=== PATIENT | male | born 1990 | race Caucasian/White ===

== ENCOUNTER 2017-04-09 18:18 | Inpatient (IN) | payer OTHER ==
[~2017-04-09] VITALS: Ht 167.6 cm; Wt 100.7 kg
[2017-04-09 19:01] LABS: BILIRUBIN,URINE NEGATIVE (NEGATIVE); KETONES,URINE NEGATIVE (NEGATIVE); LEUKOCYTE ESTERASE ,URINE NEGATIVE (NEGATIVE); NITRITE,URINE NEGATIVE (NEGATIVE); PROTEIN,URINE DIPSTICK NEGATIVE (NEGATIVE); URINE UROBILINOGEN 0.2 mg/dL (0.2 - 1)
[2017-04-09 19:08] LABS: AMPHETAMINES SCREEN,URINE NEGATIVE (NEGATIVE); BENZODIAZEPINES SCREEN,URINE NEGATIVE (NEGATIVE); CANNABINOIDS SCREEN,URINE NEGATIVE (NEGATIVE); PHENCYCLIDINE SCREEN,URINE NEGATIVE (NEGATIVE)
[2017-04-09 19:09] LABS: CLARITY,URINE CLEAR (CLEAR); COLOR,URINE STRAW (YELLOW)
[2017-04-09 19:30] LABS: EPITHELIAL CELLS,URINE RARE /LPF; WBC,URINE (MAN) 0-5 /HPF (0-5)
[2017-04-09] MEDS ORDERED: SODIUM CHLORIDE 0.9% 1000ML 1,000 ML IV STA (21:30)
--- NOTE | 2017-04-09 21:56 | Diagnostic Imaging Report ---
EXAM: CHEST SINGLE (PORTABLE), AP 1 view DATE: 04/09/2017 9:30 PM Time stamp on exam: 2146 hours INDICATION: Headache, possible seizure COMPARISON: None FINDINGS: LINES/TUBES: None LUNGS: Bibasilar atelectasis. PLEURA: No effusions or pneumothorax. HEART AND MEDIASTINUM: Normal size and contour. BONES AND SOFT TISSUES: No acute findings. IMPRESSION: Bibasilar atelectasis. Signed by: Dr. Carol De Oliveira M.D. on 04/09/2017 9:53 PM
--- NOTE | 2017-04-09 22:02 | Diagnostic Imaging Report ---
Exam: Head CT without contrast History: Seizure, numbness. Comparison studies: None Technique: Axial images were obtained from the skull base to the vertex. Coronal and sagittal images reconstructed from the axial data. Intravenous contrast: None Findings: Scalp: Incidental scattered dystrophic calcifications in the scalp. Bones: No fractures, blastic or lytic lesions. Brain sulci: Appropriate for age. Ventricles: Normal in size and configuration. No hydrocephalus. Extra-axial spaces: No masses, no fluid collection. Parenchyma: No abnormal densities. No masses, acute hemorrhage, acute or chronic vascular insults. Sellar/suprasellar region: No abnormalities. Craniocervical junction: Patent foramen magnum. No Chiari one malformation. Incidental findings: Nonspecific inflammatory mucosal thickening in the maxillary sinuses with fluid levels in the maxillary sinuses and right sphenoid sinus which could be correlated for sinusitis. Mild inflammatory mucosal thickening in the right anterior ethmoids. IMPRESSION: 1. No intracranial abnormalities. 2. Inflammatory changes in the paranasal sinuses as described which could be correlated for acute sinusitis. Signed by: Dr. Holden Johnson M.D. on 04/09/2017 9:58 PM
[2017-04-09] MEDS ORDERED: VANCOMYCIN 1GM/NS 250 ML 250 ML IV STA (22:41)
[2017-04-09] MEDS: CEFTRIAXONE SOD 1 GM VIAL IV SCH (23:40)
[2017-04-10 00:05] LABS: BASOPHILS % 0.2 % (0.0-1.0); EOSINOPHILS # (AUTO) 0.2 (0.0-0.4); EOSINOPHILS % 1.7 % (0.0-6.0); HEMATOCRIT 52.1 % (38.2-49.6); HEMOGLOBIN 17.7 g/dL (14.0-18.0); INR 0.9; LYMPHOCYTES # (AUTO) 2.4 (1.0-3.2); LYMPHOCYTES % 20.7 % (18.0-39.1); MEAN CORPUSCULAR HEMOGLOBIN 27.1 pg (28-32); MEAN CORPUSCULAR VOLUME 79.8 fL (81-99); MONOCYTES # (AUTO) 0.6 (0.2-0.8); MONOCYTES % 5.2 % (4.4-11.3); NEUTROPHILS # (AUTO) 8.4 (2.1-6.9); NEUTROPHILS % 71.8 % (38.7-80.0); PLATELET COUNT 194 x10e3/uL (140-360); PROTHROMBIN TIME 12.6 seconds (11.9-14.5); RED BLOOD COUNT 6.53 x10e6/uL (4.3-5.7); RED CELL DISTRIBUTION WIDTH 12.5 % (11.7-14.4)
[2017-04-10 00:06] LABS: PARTIAL THROMBOPLASTIN TIME 34.1 seconds (23.8-35.5)
[2017-04-10] MEDS ORDERED: OSELTAMIVIR PHOSPHATE 75 MG CAP PO STA (00:26)
[2017-04-10] MEDS ORDERED: LEVETIRACETAM 500MG/5ML VIAL 1,000 MG in SODIUM CHLORIDE 0.9% 100 ML 100 ML IV ONE (00:45)
[2017-04-10] MEDS ORDERED: LORAZEPAM INJ 2 MG/ML VIAL ONE (01:09)
[2017-04-10] MEDS ORDERED: ACYCLOVIR SODIUM INJ 1,000 MG in SODIUM CHLORIDE 0.9% 250ML 250 ML IV STA (01:12)
[2017-04-10] MEDS ORDERED: LORAZEPAM INJ 2 MG/ML VIAL IV ONE ×2 (01:15→11:30)
[2017-04-10 01:35] LABS: APPEARANCE,CSF CLEAR (CLEAR); COLOR,CSF COLORLESS (COLORLESS); TUBE NUMBER 1
[2017-04-10 01:36] LABS: APPEARANCE,CSF CLEAR (CLEAR); COLOR,CSF COLORLESS (COLORLESS); TUBE NUMBER 4; WHITE BLOOD CELL,CSF 2 cells/uL (0-5)
[2017-04-10 01:37] LABS: WHITE BLOOD CELL,CSF 1 cells/uL (0-5)
[2017-04-10] MEDS ORDERED: LEVETIRACETAM 500 MG/5 ML VIAL IV ONE (01:37)
[2017-04-10 01:50] LABS: TOTAL PROTEIN,CSF 35.2 mg/dL (15-40)
[2017-04-10 02:36] LABS: ALANINE AMINOTRANSFERASE 30 IU/L (0-55); ALBUMIN 3.7 g/dL (3.5-5.0); ALBUMIN/GLOBULIN RATIO 1.3 (0.8-2.0); ALKALINE PHOSPHATASE 48 IU/L (40-150); ANION GAP 13.1 mmol/L (8-16); BLOOD UREA NITROGEN 11 mg/dL (7-26); BUN/CREATININE RATIO 10 (6-25); CALCIUM 9.1 mg/dL (8.4-10.2); CARBON DIOXIDE 25 mmol/L (22-29); CHLORIDE 105 mmol/L (98-107); CREATINE KINASE 68 IU/L (30-200); EST GLOMERULAR FILTRATION RATE > 60 ML/MIN (60-); GLUCOSE 334 mg/dL (74-118); MAGNESIUM 1.9 MG/DL (1.3-2.1); POTASSIUM 4.1 mmol/L (3.5-5.1); SODIUM 139 mmol/L (136-145)
[2017-04-10 02:43] LABS: TROPONIN I < 0.001 ng/mL (0-0.300)
[2017-04-10] MEDS ORDERED: LORAZEPAM INJ 2 MG/ML VIAL IV PRN (03:00)
[2017-04-10] MEDS ORDERED: ONDANSETRON HCL INJ 2 MG/ML VIAL IV PRN (03:00)
[2017-04-10] MEDS: SODIUM CHLORIDE 0.9% 1000ML 1,000 ML IV SCH ×3 (03:16→20:45)
[2017-04-10 05:59] LABS: BASOPHILS % 0.3 % (0.0-1.0); EOSINOPHILS # (AUTO) 0.2 (0.0-0.4); EOSINOPHILS % 2.3 % (0.0-6.0); HEMATOCRIT 43.2 % (38.2-49.6); LYMPHOCYTES % 31.7 % (18.0-39.1); MEAN CORPUSCULAR HEMOGLOBIN 27.7 pg (28-32); MEAN CORPUSCULAR HGB CONC 34.7 g/dL (31-35); MEAN CORPUSCULAR VOLUME 79.9 fL (81-99); MONOCYTES # (AUTO) 0.6 (0.2-0.8); MONOCYTES % 6.1 % (4.4-11.3); NEUTROPHILS # (AUTO) 5.5 (2.1-6.9); NEUTROPHILS % 59.3 % (38.7-80.0); PLATELET COUNT 204 x10e3/uL (140-360); RED BLOOD COUNT 5.41 x10e6/uL (4.3-5.7); RED CELL DISTRIBUTION WIDTH 12.1 % (11.7-14.4)
[2017-04-10] MEDS: VANCOMYCIN 500MG/NS 0.9% 100ML 100 ML IV SCH ×3 (06:11→12:41)
[2017-04-10 06:20] LABS: ALANINE AMINOTRANSFERASE 28 IU/L (0-55); ALBUMIN 3.6 g/dL (3.5-5.0); ALBUMIN/GLOBULIN RATIO 1.3 (0.8-2.0); ALKALINE PHOSPHATASE 47 IU/L (40-150); ANION GAP 13.8 mmol/L (8-16); BLOOD UREA NITROGEN 10 mg/dL (7-26); BUN/CREATININE RATIO 10 (6-25); CARBON DIOXIDE 26 mmol/L (22-29); CHLORIDE 105 mmol/L (98-107); CREATININE, SERUM 0.98 mg/dL (0.72-1.25); EST GLOMERULAR FILTRATION RATE > 60 ML/MIN (60-); GLUCOSE 292 mg/dL (74-118); POTASSIUM 3.8 mmol/L (3.5-5.1); SODIUM 141 mmol/L (136-145)
[2017-04-10] MEDS ORDERED: LEVETIRACETAM 500 MG TAB PO SCH (09:00)
--- NOTE | 2017-04-10 10:24 | Diagnostic Imaging Report ---
EXAMINATION: MRI of the brain without contrast. HISTORY: Seizures COMPARISON: None TECHNIQUE: Pre-contrast: Sagittal T1; axial T1-IR, MPGR, DWI, FLAIR; Post-contrast: axial, sagittal, and coronal T1. Thin section coronals of the temporal lobes: FLAIR, T2. IMAGE QUALITY: Motion artifact limits evaluation of some of the sequences, particularly the indicated coronal temporal lobe T2 and T2 FLAIR. FINDINGS: Mass: None. Enhancement: No abnormal enhancement of the brain or meninges. Encephalomalacia: No areas. Ischemic changes: None. Calcification/iron: No abnormal deposits. Hippocampi: Mild volume loss for patient's age without abnormal signal/gliosis. Normal fornices. Given the lack of abnormal signal this is unlikely to represent mesial temporal sclerosis, however an early phase cannot totally be excluded, otherwise there is may represent sequela from remote insult. Vascular: No obvious vascular malformation. Normal flow voids in major arteries and veins.[ Cruz matter: No cortical migration anomalies. White matter: A few scattered mostly left superior parietal centrum semiovale white matter T2 and FLAIR hyperintense foci, which may represent sequela from remote insult (perhaps trauma, ischemia, infection, among other causes). Other: Brain volume: Normal for age. Ventricles: No hydrocephalus or displacement. Foramen Magnum: Unremarkable. Sella: Unremarkable. Skull: No focal lesions. Sinuses/mastoids: Mild mucosal edematous thickening of the bilateral maxillary, ethmoidal and right sphenoid sinuses, otherwise clear. IMPRESSION: 1. Nonspecific mild bilateral hippocampal volume loss without abnormal signal as detail above. 2. Nonspecific few left parietal white matter hyperintense foci as described. 3. Mild mucosal inflammatory thickening of the paranasal sinuses. Signed by: Dr. Haylee Fischer M.D. on 04/10/2017 10:20 AM
[2017-04-10] MEDS: ASPIRIN 81 MG ENTERIC COATED PO SCH (10:25)
[2017-04-10] MEDS: OSELTAMIVIR PHOSPHATE 75 MG CAP PO SCH ×2 (10:25→17:27)
[2017-04-10] MEDS: ACYCLOVIR SODIUM INJ 1,000 MG in SODIUM CHLORIDE 0.9% 250ML 250 ML IV SCH ×2 (10:25→14:43)
[2017-04-10] MEDS: CEFTRIAXONE SOD 1 GM VIAL IV SCH ×2 (11:07→22:50)
--- NOTE | 2017-04-10 16:58 | History and Physical ---
This patient comes in with seizures and a febrile illness. 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 He was in his usual state of health until the day of admission. The patient started with seizure-like activities according to the mother. The mother recently had a diagnosis of flu and has been taking Tamiflu. The patient was tested in his primary care physician's office and was told that he did not have the flu and was treated for bronchitis with doxycycline. However, on the day of admission, the mother noted some focal activities on the right hand, which went into seizure-like activities. The mother called EMS, and the patient came here and was found to have the flu. 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 The patient has been getting IVIG on a recurrent basis for his immune modulation. The patient's other medical history includes hypertension, history of CVID (common variable immune deficiency), lazy eye, reflux esophagitis. SOCIAL HISTORY: Never smoker. No EtOH. No IV drug abuse. He lives with his parents. FAMILY HISTORY: The patient's brother last year. 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 PHYSICAL EXAMINATION GENERAL: Alert and oriented times 3. He can be easily aroused right now, but sleeps easily at this time. HEENT: Normocephalic and atraumatic. The pupils are reactive to light and accommodation. CV: S1 and S2 tachycardic. No murmur seen. RESPIRATORY: Breath sounds are normal. ABDOMEN: Soft, nontender. No organomegaly. BACK: Normal inspection with changes in the sacral area. SKIN: Warm. EXTREMITIES: No lower extremity edema. NEUROLOGIC: Alert and oriented times 3 as mentioned above. Cranial nerve deficits are present. No cerebellar signs seen. Positive for some weakness in the right arm and altered sensation in the right arm, too. X-RAYS: Normal chest x-ray. CT of the head: No acute inflammatory changes. MRI of the brain shows nonspecific mild hippocampal volume loss, mild mucosal inflammatory paranasal sinuses. LABS: PT and PTT were normal. Cardiac labs normal. Drug toxicity levels are normal. Chemistries: Glucose is 334. Lactic acid was positive at 21. CBC: White count is elevated at 11,000. Lumbar puncture was performed. MRI was done, too. ASSESSMENT: Focal seizures. The patient has been seen by the neurologist, and Keppra has been started. As far as his immune deficiency, will leave it to neurology to start IVIG if needed. A consult with Dr. Asencio has been done, too. Will start the patient on Tamiflu, and 75 mg has been given and will start twice a day. Rocephin 2 g q.12 h. has been started, too. Also, acyclovir was given to the patient. Will continue to monitor the patient and keep him in respiratory isolation. Further recommendations per clinical course. If needed, the patient will be transferred to a tertiary center for further care. We did talk to his nailing machine operator, and will continue contacting her for necessary medical knowledge to treat his immune deficiency. Further recommendations per clinical course. Will keep the patient as inpatient. Job#: [id number]
--- NOTE | 2017-04-10 17:09 | Consultation ---
DATE OF CONSULTATION: April 10, 2017 INFECTIOUS DISEASE CONSULTATION REASON FOR CONSULTATION: Fever, chills, altered mental status, seizure disorder, pneumonia. HISTORY OF PRESENT ILLNESS: Mr. Anderson is a 27-year-old white gentleman who has history of common variable immunodeficiency and a history of partial seizure according to the father. The patient comes into the emergency room because he had a seizure, grand mal seizure, fever, chills. In the emergency room, he was evaluated. I was contacted last night by the ER. Patient was seen earlier in the morning today. The patient was evaluated, but he did have another seizure and the father was telling me that he was doing better before the seizure took place because he was loaded with antiseizure medication in the emergency room. The patient, while he was evaluated, answered some question. He knows he is in the hospital. So, Infectious Disease was consulted because influenza was positive. LABORATORY DATA: His white count on admission 11.64, hemoglobin 17.7, his platelet of 194. Today is 9.3, hemoglobin 15. His sodium 141, potassium 3.8, creatinine of 0.98. The lactic acid on admission was 21. Albumin 3.6. His urine drug screen was negative. His influenza A and B was positive for A, and group A strep was positive. He had a spinal tap which showed a WBC of 2, RBC of 12. PHYSICAL EXAMINATION: GENERAL: He is currently alert, follows simple commands. VITALS: Stable. No fever since admission. HEENT: Normocephalic. NECK: Supple. No JVD. No lymphadenopathy. No thyromegaly. CHEST: Clear bilaterally. HEART: S1/S2. No S3, no S4. No murmur. ABDOMEN: Soft. Bowel sounds present. No tenderness. EXTREMITIES: No edema. IMPRESSION: 1. Influenza A. 2. Seizure. 3. Strep infection, pharyngitis. From infectious disease point of view, continue with Tamiflu, continue with Rocephin. Discontinue vancomycin, discontinue acyclovir. 4. Seizure disorder. 5. Neuro has been consulted. MRI was done which showed nonspecific mild bilateral hippocampal volume loss. His laboratory data reviewed. His chart reviewed. Review of systems could not be obtained at the present time. I did meet with the father and discussed with the ER physician and discussed him with the nursing staff. Will follow with you. Thank you for asking me to see this patient. Job#: [id number] EV
[2017-04-10] MEDS: LEVETIRACETAM 500 MG TAB PO SCH (17:27)
[2017-04-11] MEDS ORDERED: LISINOPRIL10 MG PO (08:19)
[2017-04-11] MEDS ORDERED: MONTELUKAST SODI4 MG (08:19)
[2017-04-11] MEDS ORDERED: FLUTICASONE PRO16 GM (08:19)
[2017-04-11] MEDS ORDERED: ALLEGRA ALLERGY60 MG (08:19)
[2017-04-11] MEDS: ASPIRIN 81 MG ENTERIC COATED PO SCH (09:30)
[2017-04-11] MEDS: SODIUM CHLORIDE 0.9% 1000ML 1,000 ML IV SCH ×3 (09:30→20:13)
[2017-04-11] MEDS: OSELTAMIVIR PHOSPHATE 75 MG CAP PO SCH ×2 (09:30→17:25)
[2017-04-11] MEDS: LEVETIRACETAM 500 MG TAB PO SCH ×2 (09:30→17:25)
[2017-04-11] MEDS ORDERED: LEVETIRACETAM 500MG/5ML VIAL 1,000 MG in SODIUM CHLORIDE 0.9% 100 ML 100 ML IV STA (11:56)
[2017-04-11] MEDS: CEFTRIAXONE SOD 1 GM VIAL IV SCH ×2 (12:28→23:13)
--- NOTE | 2017-04-11 13:21 | Progress Note ---
DATE: April 11, 2017 INFECTIOUS DISEASE PROGRESS NOTE Mr. Anderson is doing better. He is more alert. He had a seizure earlier again today, but neurology is following. He also has a headache, and his mom is telling me he also has severe migraine. The patient overall is feeling better. No shortness of breath, cough, or fever. REVIEW OF SYSTEMS: Otherwise negative. PHYSICAL EXAMINATION GENERAL: He is alert and oriented. Does not seem to be in acute distress. VITALS: Stable. Currently afebrile. HEENT: Nonicteric. NECK: Supple. No JVD. No lymphadenopathy. No thyromegaly. LABORATORY DATA: Reviewed. His white count is 9.3, hemoglobin 15, glucose 22. IMPRESSION 1. Seizure per neurology. 2. Migraine per neurology. 3. Influenza. 4. Pneumonia, resolved. 5. Variable immune deficiency, getting intravenous immune globulin. 6. Diabetes. 7. Stable from an infectious disease point of view. Job#: [id number]
[2017-04-11] MEDS ORDERED: IBUPROFEN 200 MG TAB PO PRN (16:45)
[2017-04-11] MEDS ORDERED: IBUPROFEN 400 MG TAB PO ONE (16:45)
[2017-04-11] MEDS ORDERED: IBUPROFEN 400 MG TAB PO PRN (16:45)
[2017-04-12] VITALS (7 sets, daily range): BP systolic 119–144; BP diastolic 82–107
[2017-04-12] MEDS: SODIUM CHLORIDE 0.9% 1000ML 1,000 ML IV SCH ×2 (02:31→10:49)
[2017-04-12] MEDS: ASPIRIN 81 MG ENTERIC COATED PO SCH (09:08)
[2017-04-12] MEDS: LEVETIRACETAM 500 MG TAB PO SCH (09:08)
[2017-04-12] MEDS: OSELTAMIVIR PHOSPHATE 75 MG CAP PO SCH (09:08)
[2017-04-12] MEDS: CEFTRIAXONE SOD 1 GM VIAL IV SCH (11:23)
--- NOTE | 2017-04-15 11:26 | Consultation ---
DATE OF CONSULTATION: April 10, 2017 NEUROLOGY CONSULTATION REASON FOR CONSULTATION: Seizures. HISTORY OF PRESENT ILLNESS: Mr. Anderson is a 27-year-old nxsio-[id number] man with past medical history significant for hypertension, asthma, gastroesophageal reflux disease, CVID, scoliosis and obstructive sleep apnea, who presented to [facility] on the evening of April 09, 2017, after experiencing a witnessed seizure. Unfortunately, Mr. Anderson has very little recollection of the seizure and the events surrounding it. His mother, who witnessed the seizure, is not available at this time. His father, who is at the bedside, describes the seizure as follows: The patient experienced the abrupt onset of shaking in his right arm and widening of the eyes. The father is not aware of any gaze deviation or generalization of the activity. His father states Mr. Anderson was aware during the event. However, during a subsequent seizure the patient was not able to answer questions or communicate in a meaningful way. Therefore, it is possible the patient was not aware during this first seizure. It is unknown how long the seizure activity lasted. Mr. Anderson was postictal for an unknown period of time. As soon as the patient was witnessed by his mother to have a seizure, emergency medical services were contacted and the patient was transported to [facility] via ambulance. While in the emergency center, the patient has been witnessed to have 2 generalized tonic-clonic seizures. Per the patient's emergency room nurse, the seizure began with shaking in the right upper extremity and then secondarily generalized. Both seizures lasted approximately 1-1/2 to 2 minutes, followed by a postictal state of unknown duration. In addition to the recent seizure activity, the patient has experienced objective fevers and a cough productive of green sputum over the last several days. While in the emergency center, the patient tested positive for both influenza and streptococcus. Due to the combination of fever, productive cough and reportedly new-onset seizure in an individual who is immunocompromised, the emergency center physician was justifiably concerned about the presence of a central nervous system infection. Mr. Anderson did undergo a lumbar puncture. Fortunately, there is no evidence of infection in the cerebrospinal fluid. While in the emergency center, Mr. Anderson underwent an MRI of the brain as well. Those results will be discussed in detail under the imaging section of this note. In a period of less than 24 hours, Mr. Anderson has experienced approximately 3 seizures. Two of those seizures were witnessed by emergency room staff. He was loaded with Keppra 1000 mg IV. He was prescribed Keppra 500 mg by mouth twice daily for seizure prophylaxis as well. Admission to the intensive care unit is pending. REVIEW OF SYSTEMS: The patient endorses objective fevers, dry mouth (chronic), cough productive of green sputum, dry skin (chronic), seizures, right arm weakness, and numbness and tingling of the right arm. The remainder of the 12-point review of systems was negative. PAST MEDICAL HISTORY: Hypertension, prediabetes, asthma, gastroesophageal reflux disease, common variable immunodeficiency, scoliosis, obstructive sleep apnea. In regards to the obstructive sleep apnea, the patient recently qualified for a CPAP but has not received the equipment at this time. PAST SURGICAL HISTORY: The patient had surgery on his left eye for a tear duct blockage. He had repair of a scrotal hernia. Both surgeries occurred in infancy. PAST HOSPITALIZATIONS: Mr. Anderson has been hospitalized numerous times for respiratory infections and CVID. He was hospitalized once for a broken left arm. FAMILY HISTORY: The patient's paternal grandfather is from coronary artery disease. His paternal grandmother is from breast cancer. Mr. Anderson's maternal grandfather is from alcoholic cirrhosis. His maternal grandmother is , cause unknown. The patient's father is alive and has high blood pressure and diabetes. The patient's mother is alive and has high blood pressure and diabetes as well. The patient's only sibling, a brother, last year from recurrent medulloblastoma. The patient has no children. SOCIAL HISTORY: The patient has 2 associate's degrees, one in life science and the other in art. Mr. Anderson is on disability. He is single. The patient does not report current or prior tobacco or recreational drug use. He does report drinking an occasional glass of wine. MEDICATIONS: Mr. Anderson takes a medication to prevent infection. He does not recall the name, dose, route or frequency of this medication. He receives weekly infusions for treatment of CVID. Other medications include lisinopril 40 mg by mouth daily, Kaelyn 1 tablet by mouth daily, Flonase 2 puffs inhaled daily, a nasal spray which he uses twice daily, and montelukast. ALLERGIES: THERE ARE NO KNOWN DRUG ALLERGIES. THERE ARE NO KNOWN FOOD ALLERGIES. THE PATIENT DOES NOT REPORT AN ALLERGY TO LATEX OR CONTRAST. PHYSICAL EXAMINATION VITAL SIGNS: Height 5 feet 6 inches, weight 215 pounds, body mass index 34.7. Blood pressure 92/61 mmHg, pulse 103 beats per minute, respiratory rate 16 breaths per minute, oxygen saturation 97% on room air. The patient is afebrile. GENERAL: The patient is postictal but does not appear distressed. Moderately obese. HEENT: Normocephalic, atraumatic. Pupils are equal, round and reactive to light. Mucous membranes are moist. NECK: Supple. No appreciable thyromegaly. No carotid bruits. CARDIOVASCULAR: S1, S2, regular rate and rhythm. No murmurs, rubs, or gallops. RESPIRATORY: Clear to auscultation bilaterally. No wheezes, rhonchi, or rales. EXTREMITIES: The skin is warm and dry. No clubbing, cyanosis, or edema. The posterior tibial and dorsalis pedis pulses are 2+ and symmetric. SKIN: As noted above, skin is warm and dry. The patient is noted to have flaking skin over the feet and forelegs. No rashes or lesions. NEUROLOGIC MEMORY AND ATTENTION: The patient is postictal. He is oriented to person, place, time, and to situation. CRANIAL NERVES: Cranial nerve 1 is not tested. Cranial nerves 2, 3, 4 and 6--Pupils are equal and round, react briskly to light (from 4 mm to 2 mm). 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 Cranial nerve 5--Sensation to light touch and pinprick is intact in the bilateral V1 through V3 distributions. Strength of the temporalis and masseter muscles is within normal limits. Cranial nerve 7--The face is symmetric, as are all facial movements. Strength is within normal limits. Cranial nerve 8--Hearing is intact to finger rub bilaterally. Cranial nerve 9, 10--The soft palate elevates equally and symmetrically. Cranial nerve 11--Normal strength of the bilateral sternocleidomastoid and trapezius muscles. Cranial nerve 12--The tongue protrudes midline and moves symmetrically from side to side. STRENGTH: Bulk is normal, and strength is 5/5 in the bilateral deltoids, biceps, triceps, wrist flexors and extensors, finger flexors and extensors, intrinsic hand muscles, hip flexors, knee flexors and extensors, ankle dorsiflexion and plantarflexion, and intrinsic foot muscles. Tone is normal except as follows: Strength is grossly 4/5 in the right arm with decreased tone. DTRS: Deep tendon reflexes are diminished throughout. Plantar responses are withdrawal bilaterally. Absent clonus. SENSATION: Sensation is intact to light touch and pinprick in both arms and legs. CEREBELLAR: Ibdgvj-jlkk-astqfy maneuvers are mildly impaired on the right arm but within the bounds of paresis. Bilateral heel-coker maneuvers are intact without dysmetria or other impairment. GAIT: Not assessed as the patient is at risk for falls. SPEECH: Spontaneous speech does not demonstrate appreciable aphasia. Mild dysarthria is appreciated. Repetition is intact. INVOLUNTARY MOVEMENTS: None. PRONATOR DRIFT: Positive in the right arm. LABORATORY DATA: Sodium 139, potassium 4.1, chloride 105, carbon dioxide 25, anion gap 13.1, BUN 11, creatinine 1.10, estimated GFR greater than 60, BUN/creatinine ratio 10, glucose 334. Lactic acid 21, calcium 9.1, magnesium 1.9. Total bilirubin 0.7, AST 13, ALT 30, alkaline phosphatase 48, ammonia 97. Creatine kinase 68, CK-MB 0.50, troponin I less than 0.001. Total protein 6.6, albumin 3.7, globulin 2.9, albumin/globulin ratio 1.3. White blood cell count 11.64, neutrophils 71.8%, lymphocytes 20.7%, monocytes 5.2%, eosinophils 1.7%, red blood cell count 6.53, hemoglobin 17.7, hematocrit 52.1, MCV 79.8. PT 12.6, PTT 34.1, INR 0.90. Urinalysis is significant for 3+ glucose but is otherwise negative/normal. A urine drug screen is negative. The results of HSV1 and HSV2 testing are pending. An influenza screen was positive for flu A. A group A streptococcus screen was positive. Cerebrospinal fluid is clear and colorless. The white blood cell count is 1 without a differential. The red blood cell count is 2. The glucose is 197. This CSF glucose is elevated but is consistent with the known elevated serum glucose. The cerebrospinal fluid total protein is 35.2. IMAGING Chest x-ray impression: Bibasilar atelectasis. MRI of the brain without contrast: On my review of the MR images, there is diffuse cerebral atrophy noted, more than is expected for a patient of this age. The bilateral hippocampal formations are atrophic as well. Furthermore, the architecture of the hippocampal formations is not preserved. 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 There is subtle diffuse enhancement of the meninges. Given the results of the patient's lumbar puncture, there is a low suspicion for meningitis. It is more likely the subtle enhancement is the result of Mr. Anderson's recent lumbar puncture. Lastly, there are a few scattered hyperintense foci within the left parietal lobe of unclear clinical significance. ASSESSMENT AND PLAN: Mr. Anderson is a 27-year-old udspw-vtou-kacbhvod man with past medical history as described above, who presented to the emergency center at [facility] following a reportedly new-onset seizure. While in the emergency center, the patient has been witnessed to have 2 "grand mal" seizures by various medical staff. Mr. Anderson has been found to be infected with streptococcus A and influenza A as well. His neurological examination is significant for mildly decreased strength with pronator drift of the right arm, mildly decreased tone of the right arm, and impairment of gtdgri-nlev-lhpaev maneuvers of the right arm. However, this last is within the bounds of paresis. The patient's laboratory data and imaging studies have been reviewed and are documented as above. In an immunocompromised patient presenting with new-onset seizure in the setting of objective fever and cough productive of green sputum, the first consideration must be a central nervous system infection (i.e. meningoencephalitis). Mr. Anderson has undergone a lumbar puncture, and fortunately there is no evidence of central nervous system infection. 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 Individuals with mesial temporal sclerosis are at an increased risk for developing a seizure disorder. In these patients, if the seizure threshold is lowered, they are much more likely to experience seizure activity. In Mr. Anderson's case, his seizure threshold is lowered by the presence of infection. 1. 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 His seizure disorder (epilepsy) arises from the structural abnormalities in his brain as seen on the MRI of the brain without contrast. His recent illness lowered his seizure threshold, causing him to experience multiple seizures as described in the history of present illness. The patient has undergone an extensive evaluation thus far. The results of that evaluation are discussed in different portions of the note above. The only other diagnostic study recommended is an electroencephalogram (EEG). This study has been ordered and is pending at this time. For seizure prophylaxis, the patient has been prescribed Keppra 500 mg by mouth twice daily. I agree with prescription of seizure prophylaxis. However, I recommend the dose be increased to 1000 mg by mouth twice daily. The possible benefits and side effects of the medication were discussed in detail with Mr. Anderson and his father. 2. Jose Angel's paralysis: The weakness in the patient's right arm probably represents Jose Angel's paralysis, a postictal phenomenon. The patient and his father were reassured the strength in the right arm will gradually return over the next several hours to a few days. Seizure precautions were discussed in detail with the patient and his father. Those precautions are as follows: Sleep 7 to 8 hours per night. Moderate alcohol consumption. Avoid the use of stimulants, prescription and recreational. As much as possible, the patient should avoid infection, as any infection will lower his seizure threshold. Mr. Anderson was told he may not climb up and down ladders or perform activities at any height above ground. He is not to swim alone. Lastly, the patient is not to drive for the next 3 months by [employer] state law. Time spent: 70 minutes. Job#: [id number] EV
--- NOTE | 2017-04-16 13:22 | Progress Note ---
DATE: 04/11/2017 NEUROLOGY PROGRESS NOTE OVERNIGHT EVENTS: Since the initial neurological consultation on April 10, 2017, Mr. Anderson has experienced 1 additional seizure, which he describes as mild. The seizure occurred this morning, April 11, 2017. Mr. Anderson states he was in the bathroom when he experienced the abrupt onset of shaking in his right arm. The patient was otherwise awake and aware. Mr. Anderson is uncertain as to how long this activity lasted. There was no postictal phase. Over the past several hours, there has been improvement in the weakness and numbness affecting the patient's right arm. Mr. Anderson reports his strength has improved by "100%". Mr. Anderson remains in the emergency center. He is awaiting a bed in the intensive care unit. At the time of this evaluation, the patient is sitting up in bed comfortably, eating breakfast. ROS General: No fever, chills. CV: No chest pain, fast or irregular heart beat. Respiratory: No shortness of breath. Positive productive cough. Neurological: Positive for a seizure. No weakness or numbness in the MEDICATIONS 1. Ceftriaxone sodium 2 g IV every 12 hours. 2. Normal saline at 125 mL per hour. 3. Levetiracetam 1000 mg by mouth twice daily. 4. Tamiflu 75 mg by mouth twice daily. 5. Aspirin 81 mg by mouth daily. 6. Ativan 1 mg IV every 4 hours as needed for seizure. 7. Zofran 4 mg IV every 4 hours as needed for nausea and vomiting. PHYSICAL EXAMINATION VITAL SIGNS: Temperature afebrile, blood pressure 121/85, heart rate 92, respiratory rate 14, oxygen saturation 98% on room air. GENERAL: The patient is awake and alert. Not distressed. Moderately obese. HEENT: Normocephalic and atraumatic. Pupils equal, round and reactive to light. Mucous membranes are moist. CARDIOVASCULAR: S1 and S2. Regular rate and rhythm. No murmurs, rubs or gallops. RESPIRATORY: Clear to auscultation bilaterally. No wheezes, rhonchi or rales. EXTREMITIES: Skin is warm and dry. No clubbing, cyanosis or edema. The posterior tibial and dorsalis pedis pulses are 2+ and symmetric. NEUROLOGIC: Memory and attention: The patient is awake and alert. He is oriented to person, place, time, and situation. Cranial nerves II, III, IV, and : Pupils are equal and round. Briskly reactive to light (from 4 mm to 2 mm). Extraocular movements are intact except as follows: Mild left cranial nerve palsy (chronic). No nystagmus. Cranial nerve V: Sensation to light touch is intact in the bilateral V1-V3 distributions. Strength of the temporalis and masseter muscles is within normal limits. Cranial nerve VII: The face is symmetric, as are all facial movements. Strength is within normal limits. Cranial nerve VIII: Hearing is intact to finger rub bilaterally. Cranial nerves IX and X: The soft palate elevates equally and symmetrically. Cranial nerve XI: Normal strength of the bilateral sternocleidomastoid and trapezius muscles. Cranial nerve XII: The tongue protrudes midline and moves symmetrically from side to side. STRENGTH: Bulk is normal, and strength is 5/5 in the bilateral deltoids, biceps, triceps, wrist flexors and extensors, finger flexors and extensors, intrinsic hand muscles, hip flexors, knee flexors and extensors, ankle dorsiflexion and plantarflexion, and intrinsic foot muscles. Tone is normal. SENSATION: Intact to light touch in both arms and both legs. GAIT: No assessed as the patient is at risk for falls. SPEECH: Spontaneous speech does not demonstrate appreciable aphasia. Mild dysarthria persists. INVOLUNTARY MOVEMENTS: None. PRONATOR DRIFT: None. LABORATORY DATA: There is no new laboratory data to review at this time. IMAGING: The patient has undergone an EEG as ordered on April 10, 2017. The results of this study are pending. ASSESSMENT AND PLAN: Mr. Anderson is a 27-year-old right-hand dominant man with past medical history significant for hypertension, asthma, gastroesophageal reflux disease, CVID, scoliosis, and obstructive sleep apnea. He presented to [facility] on the evening of April 09, 2017, after experiencing a single seizure. While in the emergency center, over the past 24+ hours, the patient has experienced 3 additional seizures. Mr. Anderson was initially loaded with Keppra 1000 mg intravenously followed by the prescription of Keppra 500 mg by mouth twice daily for seizure prophylaxis. This dose was increased to 1000 mg by mouth twice daily for seizure prophylaxis on April 10, 2017. Since the increase in dose of Keppra, the patient has experienced 1 simple partial seizure as described in the overnight event section of this note. The patient's neurological examination has improved since the time of the initial neurological consultation. He has full strength and sensation in his right arm. As stated in the initial consultation note, Mr. Anderson has a predisposition towards seizures due to structural abnormality in the brain as seen on MRI of the brain. His most recent seizure activity is the result of lowering of the seizure threshold due to infection with influenza type A and streptococcus A. IMPRESSION 1. 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 Anderson has experienced a single simple partial seizure since beginning treatment with the increased dose of Keppra, which was prescribed on April 10, 2017. Seizure prophylaxis with Keppra 1000 mg by mouth twice daily will be continued. I have ordered a 2nd loading dose of Keppra 1000 mg intravenously to be administered once. This is done so the medication may enter the patient's system at a more rapid rate, and hopefully bring his seizures under full control. 2. Seizure precautions were once again discussed with the patient and his father. They are as follows: Sleep 7-8 hours per night. Moderate alcohol consumption. Avoid the use of stimulants, prescription and recreational. As much as possible, the patient should avoid infection as any infection will lower his seizure threshold. Mr. Anderson was told he may not climb up and down ladders or perform activities at any height above ground. He is not to swim alone. Lastly, the patient is not to drive for the next 3 months by [place] state law. 3. Jose Angel's paralysis: Resolved. Time spent: 45 minutes. Job#: [id number] [facility]
== END 2017-04-12 11:57 | disposition home or self-care (01) | DRG 100 ==
LOC: ER 18:18 → ERHOLD 04-10 03:17 → EDBEDREQSVC 04-11 22:53 → MED/SURG2 04-12 01:16
PROVIDERS: ADMIT Family Medicine; ATTEND Family Medicine
PROC: 009U3ZX Drainage of Spinal Canal, Percutaneous Approach, Diagnostic (ICD-10-PCS; principal; 2017-04-10)
DX: G40.209 Localization-related (focal) (partial) symptomatic epilepsy and epileptic syndromes with complex partial seizures, not intractable, without status epilepticus (principal); J18.9 Pneumonia, unspecified organism; D83.9 Common variable immunodeficiency, unspecified; Q87.2 Congenital malformation syndromes predominantly involving limbs; F84.0 Autistic disorder; J10.1 Influenza due to other identified influenza virus with other respiratory manifestations; G83.84 Todd's paralysis (postepileptic); M41.9 Scoliosis, unspecified; J02.0 Streptococcal pharyngitis; J01.00 Acute maxillary sinusitis, unspecified; J01.10 Acute frontal sinusitis, unspecified; I10 Essential (primary) hypertension; K21.9 Gastro-esophageal reflux disease without esophagitis; R73.09 Other abnormal glucose; J45.909 Unspecified asthma, uncomplicated; G47.33 Obstructive sleep apnea (adult) (pediatric); G43.909 Migraine, unspecified, not intractable, without status migrainosus
CPT/HCPCS: 36415; 62270; 70450; 70551; 71010; 80053; 80307; 81001; 82140; 82550; 82553; 82945; 83518; 83605; 83735; 84157; 84484; 85025; 85610; 85730; 87040; 87070; 87086; 87205; 87252; 87400; 87529; 89051; 93005; 95812; 96360; 96365; 96374; 96376; 99285; J0696; J2060; J3370; J7030; J7050